=== PATIENT | male | born 1945 | race Caucasian/White ===

== ENCOUNTER → 2024-02-01 09:39 | Outpatient (REF) | payer MEDICARE, OTHER, SELFPAY ==
[2024-02-01 11:28] LABS: PSA, Total - Diagnostic 0.36 ng/ml (0.0-4.0)
== END ==
LOC: REG 09:39
PROVIDERS: ATTENDING PHYSICIAN Surgery; FAMILY PHYSICIAN Internal Medicine
DX: Z12.5 Encounter for screening for malignant neoplasm of prostate (principal); R97.20 Elevated prostate specific antigen [PSA]
CPT/HCPCS: 36415; 84153

== ENCOUNTER → 2024-05-14 08:46 | Outpatient (REF) | payer MEDICARE, OTHER, SELFPAY ==
[2024-05-14 10:52] LABS: Microalbumin, Random Urine 1.1 mg/dl (0.6-1.7); Microalbumin/creatinine Ratio 7.3 mg/g
[2024-05-14 11:09] LABS: ALT (SGPT) 19 U/L (0-50); AST (SGOT) 22 U/L (17-59); Albumin 4.3 g/dl (3.5-5.0); Alkaline Phosphatase 33 U/L (38-126); Blood Urea Nitrogen 26 mg/dl (9-20); Calcium 9.8 mg/dl (8.4-10.2); Carbon Dioxide 26 mmol/L (22-30); Chloride 107 mmol/L (98-107); Glucose 163 mg/dl (70-99); HDL Cholesterol 44 mg/dl; LDL Cholesterol, Calculated 47 mg/dl; Potassium 4.7 mmol/L (3.5-5.1); Sodium 141 mmol/L (135-145); Total Bilirubin 0.7 mg/dl (0.2-1.3); Total Cholesterol 108 mg/dl (50-199); Triglyceride 89 mg/dl (10-149); Very Low Density Lipoprotein 17 mg/dl (0-30); eGFR > 60.00
[2024-05-14 11:54] LABS: Glycohemoglobin (HgbA1c) 7.7 % (4.0-5.6)
== END ==
LOC: REG 08:46
PROVIDERS: ATTENDING PHYSICIAN Internal Medicine
DX: E11.9 Type 2 diabetes mellitus without complications (principal); E78.5 Hyperlipidemia, unspecified
CPT/HCPCS: 36415; 80053; 80061; 82043; 82570; 83036

== ENCOUNTER → 2024-12-05 09:33 | Outpatient (REF) | payer MEDICARE, OTHER, SELFPAY ==
[2024-12-05 11:03] LABS: ALT (SGPT) 23 U/L (0-50); AST (SGOT) 24 U/L (17-59); Albumin 4.4 g/dl (3.5-5.0); Alkaline Phosphatase 34 U/L (38-126); Blood Urea Nitrogen 25 mg/dl (9-20); Calcium 9.1 mg/dl (8.4-10.2); Carbon Dioxide 29 mmol/L (22-30); Chloride 104 mmol/L (98-107); Glucose 144 mg/dl (70-99); HDL Cholesterol 41 mg/dl; LDL Cholesterol, Calculated 58 mg/dl; Potassium 4.4 mmol/L (3.5-5.1); Sodium 141 mmol/L (135-145); Total Bilirubin 0.9 mg/dl (0.2-1.3); Total Cholesterol 120 mg/dl (50-199); Triglyceride 106 mg/dl (10-149); Very Low Density Lipoprotein 21 mg/dl (0-30); eGFR > 60.00
[2024-12-05 11:15] LABS: Glycohemoglobin (HgbA1c) 7.1 % (4.0-5.6)
[2024-12-05 11:22] LABS: Microalbumin/creatinine Ratio 6.7 mg/g
== END ==
LOC: REG 09:33
PROVIDERS: ATTENDING PHYSICIAN Internal Medicine
DX: E11.9 Type 2 diabetes mellitus without complications (principal); E78.5 Hyperlipidemia, unspecified
CPT/HCPCS: 36415; 80053; 80061; 82043; 82570; 83036

== ENCOUNTER → 2025-05-12 08:57 | Outpatient (REF) | payer MEDICARE, OTHER, SELFPAY ==
[2025-05-12 11:08] LABS: ALT (SGPT) 22 U/L (0-50); AST (SGOT) 23 U/L (17-59); Albumin 4.4 g/dl (3.5-5.0); Alkaline Phosphatase 25 U/L (38-126); Blood Urea Nitrogen 22 mg/dl (9-20); Calcium 9.2 mg/dl (8.4-10.2); Carbon Dioxide 24 mmol/L (22-30); Chloride 110 mmol/L (98-107); Glucose 118 mg/dl (70-99); HDL Cholesterol 46 mg/dl; LDL Cholesterol, Calculated 51 mg/dl; Potassium 4.2 mmol/L (3.5-5.1); Sodium 142 mmol/L (135-145); Total Cholesterol 115 mg/dl (50-199); Total Protein 7.1 g/dl (6.3-8.2); Triglyceride 94 mg/dl (10-149); Very Low Density Lipoprotein 18 mg/dl (0-30); eGFR > 60.00
[2025-05-12 13:45] LABS: Lyme Antibody Screen, EIA Negative (Negative)
== END ==
LOC: REG 08:57
PROVIDERS: ATTENDING PHYSICIAN Internal Medicine
DX: E78.5 Hyperlipidemia, unspecified (principal); E11.9 Type 2 diabetes mellitus without complications; I10 Essential (primary) hypertension; W57.XXXA Bitten or stung by nonvenomous insect and other nonvenomous arthropods, initial encounter
CPT/HCPCS: 36415; 80053; 80061; 86618

== ENCOUNTER 2025-11-17 06:14 | Day surgery (SDC) | payer MEDICARE, OTHER, SELFPAY ==
[2025-11-17] VITALS (8 sets, daily range): BP systolic 103–139; BP diastolic 60–74; BMI 30.4
--- NOTE | 2025-11-17 06:48 | HP.FOC2 ---
Focused History & Physical
Chief Complaint
HPI:
Chief Complaint: Scalp cyst
HPI / Indication for Planned Procedure: 80-year-old male with long standing history of a palpable cystic mass intermittently draining along the posterior lateral Left scalp region. Presents today for scheduled surgical excision.
Relevant Past Medical History: Other (Hypertension, hyperlipidemia, type 2 diabetes, obesity, history of melanoma)
Relevant Social History: Negative
Relevant Family History: Negative
Relevant Past Surgical History: Positive for (ORIF right ankle, left wrist fracture repair, melanoma excised, blepharoplasty, right hydrocele)
Review of Systems
Review of Pertinent Systems: All Systems Negative
Medication
See Medication form for detailed medications: Yes
Medication List (including Herbals & OTC):
simvastatin 20 mg tablet 20 mg PO HS 10/03/13
semaglutide 1 mg/dose (4 mg/3 mL) subcutaneous pen injector (Ozempic) 1 mg SC QWEEK Diabetes 11/14/25
Medications Reviewed: Yes
Allergies and Reactions
Patient has Allergies: No
Noted Allergies and Reactions:
Allergy/AdvReac Type Severity Reaction Status Date / Time
No Known Allergies Allergy Verified 11/14/25 10:34
Pertinent Physical Exam
All Other Systems: Negative
Head/Neck: Other (Posterior lateral left scalp region with 2 cm firm cystic mass associated with the dermis. No ulceration or drainage.)
Lungs: Normal
Heart: Normal
Abdomen: Normal
Extremities: Normal
Neurological: Normal
Diagnosis / Assessment
80-year-old male presenting for scheduled operative excision of cystic scalp mass
Plan / Procedure
Excision left posterior lateral scalp cyst
Anesthesia/Sedation to be done by Anesthesia Provider: Yes
--- NOTE | 2025-11-17 06:51 | W.SUR.PREOP ---
Pre-Operative Surgical Note
-
I have examined this patient prior to the performance of the scheduled procedure.
The patient's condition is unchanged from the time of the current History and
Physical and the patient is able to undergo the scheduled procedure.
[2025-11-17] MEDS: TYLENOL 1000 MG PO (07:11)
[2025-11-17] MEDS: NORMOSOL-R/PLASMALYTE-A 1000 IV (07:27)
[2025-11-17 07:30] LABS: Glucose - Point of Care 157 mg/dl (70-99)
--- NOTE | 2025-11-17 08:15 | W.IMMPOSTOP ---
Addendum entered and electronically signed by Dakotah David MD 11/17/25 08:21:
#[id number]
Original Note:
Surgical Immed Post Op Note
-
Primary Surgeon: Dakotah David MD
Assisting Surgeon: Anna Barger NP
Pre-op Diagnosis: Left posterior lateral scalp cyst
Post-op Diagnosis: Left posterior lateral scalp cyst; 2.8 cm including margin
Procedure Performed: Excision left posterior scalp cyst
Anesthesia Type: MAC +1% lidocaine/0.25% Marcaine with epinephrine
Specimen / Cultures: Scalp cyst
Estimated Blood Loss: 4 mL
Complications: None immediate
Operative Findings: Epidermal cyst/sebaceous cyst of the left posterior lateral scalp excised in its entirety. 2.8 cm excision diameter including margin. Deep dermal closure with 3-0 Vicryl. Skin closure with interrupted 3-0 nylon
The assistance of Anna Barger NP was required due to the complexity of the procedure. During the procedure Anna Barger NP assisted with retraction for adequate exposure and visualization to perform excision.
[2025-11-17 08:26] LABS: Glucose - Point of Care 97 mg/dl (70-99)
== END 2025-11-17 10:05 | disposition home or self-care (01) ==
LOC: SDS 06:14
PROVIDERS: ATTENDING PHYSICIAN Surgery
DX: L72.0 Epidermal cyst (principal)
CPT/HCPCS: 11423; 82962; 88304